=== PATIENT | male | born 2000 | race Caucasian/White ===

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

== ENCOUNTER 2021-02-09 17:32 | Emergency (ER) | payer BC, OTHER ==
[~2021-02-09] VITALS: Ht 170.1 cm; Wt 62.0 kg
--- NOTE | 2021-02-09 20:05 | ED General ---
General Stated Complaint: COUGH, SOB Source of Information: Patient Exam Limitations: No Limitations History of Present Illness Date Seen by Provider: Feb 09, 2021 Time Seen by Provider: 20:03 Initial Comments To ER with cough shortness of breath and cough for a few days. He was exposed unknowingly to a friend who was Covid positive last night. Timing/Duration: 1-2 Days Severity: Moderate Associated Systoms: Cough Allergies and Home Medications Allergies Coded Allergies: azithromycin (Unverified Allergy, Mild, 03/21/10) Penicillins (Unverified Allergy, 03/21/10) Home Medications Albuterol Sulfate 1 Puff Puff, 2 PUFF IH Q4H PRN for WHEEZING 1 PUFF = 90 MCG Prescribed by: CRISTELA MANSFIELD on 10/02/171938 Albuterol Sulfate 2.5 Mg/3 Ml Vial.neb, 2.5 MG INH Q4H PRN for WHEEZING . Prescribed by: VINAY RIVERS on 01/12/192222 Ciprofloxacin HCl 5 Ml Drops, 3 DROPS EACH EAR BID Prescribed by: KAROLINE WASHINGTON on 01/07/16944 Dexamethasone 1 Mg/1 Ml Emma, 1.5 TSP PO DAILY Mix 4MG/2.5CC water Prescribed by: KAROLINE WASHINGTON on 01/07/16944 Hydrocodone/Acetaminophen 15 Ml Solution, 1 TSP PO Q4H PRN for PAIN Prescribed by: KAROLINE WASHINGTON on 01/07/16944 Ondansetron 4 Mg Tab.rapdis, 4 MG PO Q6H PRN for NAUSEA/VOMITING Prescribed by: ROX ANDREWS on 05/10/19 102 Prednisone 10 Mg Tab, 4 TAB PO DAILY Prescribed by: VINAY RIVERS on 01/12/192129 Prednisone 20 Mg Tab, 20 MG PO DAILY . Prescribed by: VINAY RIVERS on 01/12/192222 Tetracaine Sucker Ea, 1 EA MT UD PRN for PAIN Tetracain Suckers These suckers are custom made and require a prescription. Moisten the sucker first and then suck on it gently as far back in the mouth as possible for 2-3 days. You can repeadt it in about an hour. This will take the edge off but not completely numb the throat. Prescribed by: KAROLINE WASHINGTON on 01/07/1645 [Keflex 250 MG/5 ML] , 1 TSP PO BID Prescribed by: KAROLINE WASHINGTON on 01/07/16 8747 Patient Home Medication List Home Medication List Reviewed: Yes Review of Systems Review of Systems Constitutional: see HPI EENTM: see HPI Respiratory: see HPI, cough Cardiovascular: no symptoms reported Genitourinary: no symptoms reported Musculoskeletal: no symptoms reported Skin: no symptoms reported Psychiatric/Neurological: No Symptoms Reported Hematologic/Lymphatic: No Symptoms Reported Immunological/Allergic: no symptoms reported Past Fellcvl-Aswbdt-Bzqwss Hx Immunizations Up To Date Tetanus Booster (TDap): Unknown PED Vaccines UTD: Yes Seasonal Allergies Seasonal Allergies: Yes Past Medical History Surgeries: Yes (TUBES IN EARS) Adenoidectomy, Ear Surgery, Tonsillectomy Respiratory: No Cardiac: No Neurological: No Genitourinary: No Gastrointestinal: No Musculoskeletal: No Endocrine: No HEENT: Yes Chronic Ear Infection, Tonsilitis Cancer: No Psychosocial: No Integumentary: No Blood Disorders: No Family Medical History No Pertinent Family Hx Physical Exam Vital Signs Vital Signs - First Documented 02/09/21 19:32 O2 Delivery Room Air Capillary Refill : Height, Weight, BMI Height: 5'7.00" Weight: 115lbs. 2.0oz. 52.709968xw; 19.00 BMI Method:Estimated General Appearance: No Apparent Distress, WD/WN, Thin, Other (Heart rate 54 oxygen 100% room air) Eyes: Bilateral Eye Normal Inspection, Bilateral Eye PERRL, Bilateral Eye EOMI Neck: Full Range of Motion, Normal Inspection Respiratory: No Accessory Muscle Use, No Respiratory Distress Cardiovascular: Regular Rate, Rhythm, Normal Peripheral Pulses Gastrointestinal: Normal Bowel Sounds, Non Tender, Soft Extremity: Normal Capillary Refill, Normal Inspection Neurologic/Psychiatric: Alert, Oriented x3 Skin: Normal Color, Warm/Dry Progress/Results/Core Measures Suspected Sepsis SIRS Temperature: Pulse: Respiratory Rate: Blood Pressure / Mean: Results/Orders Lab Results Laboratory Tests Test 02/09/21 19:37 Range/Units SARS-CoV-2 RNA (RT-PCR) Not Detected Not Detecte My Orders Orders - VINAY RIVERS APRN Covid 19 Inhouse Test (02/09/21 19:17) Vital Signs/I&O 02/09/21 19:32 O2 Delivery Room Air Capillary Refill : Departure Impression Primary Impression: Upper respiratory infection Disposition: 01 HOME, SELF-CARE Condition: Stable Departure-Patient Inst. Decision time for Depature: 20:33 Referrals: NAHEED DIAZ MD (PCP/Family) Primary Care Physician Patient Instructions: Viral Syndrome (DC) Add. Discharge Instructions: 1. Your Covid test tonight was negative but be mindful that it is a bit early to test given that your exposure was just last night. If you develop any changing symptoms or worsening symptoms in the next 3 to 4 days you should be reswabbed. VINYA RIVERS FRETTED INSTRUMENT REPAIRER Feb 09, 2021 20:05
[2021-02-09 20:41] VITALS: BP 94/66
== END 2021-02-09 20:34 | disposition home or self-care (01) ==
LOC: EDUNIT# 17:32 → ER 17:34
DX: J06.9 Acute upper respiratory infection, unspecified (principal); Z20.822 Contact with and (suspected) exposure to COVID-19; Z79.52 Long term (current) use of systemic steroids
CPT/HCPCS: 87636; 99282

== ENCOUNTER 2021-02-17 18:13 | Emergency (ER) | payer OTHER ==
[~2021-02-17] VITALS: Ht 187 cm; Wt 62.5 kg
[2021-02-17 18:20] VITALS: BP 119/70
[2021-02-17] MEDS ORDERED: PRD20T PO (18:40)
--- NOTE | 2021-02-17 18:40 | ED Chest Pain ---
General Chief Complaint: Chest Wall Stated Complaint: SIDE PAIN Nursing Triage Note: PT CO OF L SIDED CHEST WALL PAIN UNDER ARM AREA X 2 MONTHS, CO OF 3/10 DISCOMFORT AND SL SWELLING. WAS SEEN YESTERDAY BY PROVIDER AT [facility]. Source: patient Exam Limitations: no limitations History of Present Illness Date Seen by Provider: Feb 17, 2021 Time Seen by Provider: 18:36 Initial Comments To ER accompanied by mother with tenderness underneath the left axilla worsened by arm abduction and raising the arm up over the head. No shortness of breath. He states that he lifts heavy boxes at work. No tingling down the arm. He saw primary care yesterday and was given a prescription for Flexeril. He has been taking ibuprofen about 1 to 2 tablets 1-2 times a day for 2 months to alleviate this pain no known injury. Timing/Duration: changing over time Severity/Quality: moderate Location: central Prior CP/Workup: no prior chest pain Associated Symptoms: denies symptoms Allergies and Home Medications Allergies Coded Allergies: azithromycin (Unverified Allergy, Mild, 03/21/10) Penicillins (Unverified Allergy, 03/21/10) Home Medications Albuterol Sulfate 1 Puff Puff, 2 PUFF IH Q4H PRN for WHEEZING 1 PUFF = 90 MCG Prescribed by: CRISTELA MANSFIELD on 10/02/171938 Albuterol Sulfate 2.5 Mg/3 Ml Vial.neb, 2.5 MG INH Q4H PRN for WHEEZING . Prescribed by: VINAY RIVERS on 01/12/192222 Ciprofloxacin HCl 5 Ml Drops, 3 DROPS EACH EAR BID Prescribed by: KAROLINE WASHINGTON on 01/07/16944 Dexamethasone 1 Mg/1 Ml Emma, 1.5 TSP PO DAILY Mix 4MG/2.5CC water Prescribed by: KAROLINE WASHINGTON on 01/07/16944 Hydrocodone/Acetaminophen 15 Ml Solution, 1 TSP PO Q4H PRN for PAIN Prescribed by: KAROLINE WASHINGTON on 01/07/16944 Ondansetron 4 Mg Tab.rapdis, 4 MG PO Q6H PRN for NAUSEA/VOMITING Prescribed by: ROX ANDREWS on 05/10/19 1020 Prednisone 10 Mg Tab, 4 TAB PO DAILY Prescribed by: VINAY RIVERS on 01/12/192129 Prednisone 20 Mg Tab, 20 MG PO DAILY . Prescribed by: VINAY RIVERS on 01/12/192222 Tetracaine Sucker Ea, 1 EA MT UD PRN for PAIN Tetracain Suckers These suckers are custom made and require a prescription. Moisten the sucker first and then suck on it gently as far back in the mouth as possible for 2-3 days. You can repeadt it in about an hour. This will take the edge off but not completely numb the throat. Prescribed by: KAROLINE WASHINGTON on 01/07/16944 [Keflex 250 MG/5 ML] , 1 TSP PO BID Prescribed by: KAROLINE WASHINGTON on 01/07/16944 Patient Home Medication List Home Medication List Reviewed: Yes Review of Systems Review of Systems Constitutional: see HPI EENTM: No Symptoms Reported Respiratory: No Symptoms Reported Cardiovascular: No Symptoms Reported Gastrointestinal: See HPI Genitourinary: No Symptoms Reported Musculoskeletal: no symptoms reported Skin: no symptoms reported Psychiatric/Neurological: No Symptoms Reported Endocrine: No Symptoms Reported Hematologic/Lymphatic: No Symptoms Reported Past Hpuboiv-Ajddtz-Rtgtjr Hx Patient Social History Tobacco Use?: No Substance use?: No Alcohol Use?: No Pt feels they are or have been: No Immunizations Up To Date Tetanus Booster (TDap): Unknown PED Vaccines UTD: Yes Seasonal Allergies Seasonal Allergies: Yes Past Medical History Surgeries: Yes (TUBES IN EARS) Adenoidectomy, Ear Surgery, Tonsillectomy Respiratory: No Cardiac: No Neurological: No Genitourinary: No Gastrointestinal: No Musculoskeletal: No Endocrine: No HEENT: Yes Chronic Ear Infection, Tonsilitis Cancer: No Psychosocial: No Integumentary: No Blood Disorders: No Family Medical History No Pertinent Family Hx Physical Exam Vital Signs Vital Signs - First Documented 02/17/21 18:20 Temp 36.8 Pulse 74 Resp 18 B/P (MAP) 119/70 (86) Pulse Ox 99 Capillary Refill : Less Than 3 Seconds Height, Weight, BMI Height: 5'7.00" Weight: 115lbs. 2.0oz. 52.000475uq; 17.00 BMI Method:Estimated General Appearance: No Apparent Distress, WD/WN Respiratory: No Accessory Muscle Use, No Respiratory Distress Cardiovascular: Regular Rate, Rhythm, Normal Peripheral Pulses Gastrointestinal: Non Tender, Soft Extremity: Normal Capillary Refill, Normal Inspection Neurologic/Psychiatric: Alert, Oriented x3 Skin: Normal Color, Warm/Dry Other comments The left latissimus dorsi muscle beneath the left axilla is tender to palpation but the overlying skin is normal without edema ecchymosis or erythema. There is no palpable swelling or nodule. Progress/Results/Core Measures Results/Orders Vital Signs/I&O 02/17/21 18:20 Temp 36.8 Pulse 74 Resp 18 B/P (MAP) 119/70 (86) Pulse Ox 99 Blood Pressure Mean: 86 Departure Impression Primary Impression: Strain of latissimus dorsi muscle Disposition: HOME, SELF-CARE Condition: Stable Departure-Patient Inst. Decision time for Depature: 18:38 Referrals: NAHEED DIAZ MD (PCP/Family) Primary Care Physician Patient Instructions: Muscle Strain Add. Discharge Instructions: 1. Return to ER for any concerns 2. Follow-up with primary care next week to reevaluate symptoms and ensure improvement. If there is no improvement then a nonemergent imaging studies such as MRI may be needed All discharge instructions reviewed with patient and/or family. Voiced understanding. Scripts Prednisone (Prednisone) 20 Mg Tab 40 MG PO DAILY, #6 TAB 0 Refills Prov: VINAY RIVERS APRN 02/17/21 Images Torso/Trunk 1 - Tenderness VINAY RIVERS APRN Feb 17, 2021 18:40
== END 2021-02-17 18:53 | disposition home or self-care (01) ==
LOC: EDUNIT# 18:13 → ER 18:17
DX: S29.012A Strain of muscle and tendon of back wall of thorax, initial encounter (principal); Z79.52 Long term (current) use of systemic steroids; X50.0XXA Overexertion from strenuous movement or load, initial encounter
CPT/HCPCS: 99284

== ENCOUNTER 2021-08-14 20:17 | Emergency (ER) | payer OTHER ==
[~2021-08-14] VITALS: Ht 188 cm; Wt 66.2 kg
[2021-08-14 20:55] VITALS: BP 135/91
--- NOTE | 2021-08-14 21:09 | ED Back Pain ---
General Chief Complaint: Back Problems Stated Complaint: PAIN IN LEFT SIDE Source of Information: Patient Exam Limitations: No Limitations History of Present Illness Date Seen by Provider: Aug 14, 2021 Time Seen by Provider: 21:06 Initial Comments To ER with ongoing pain around the left scapula. I saw him a few months ago for the same. Referred him to primary care. He states he has not yet had a chance to find a primary care doctor. He works at [employer] and lifts boxes all day and it was believed to be related to a strain at that time. He occasionally has some tingling down the left arm. He denies any injury. No fevers no chills. During his last visit for the same we gave a prescription for anti-inflammat ories and muscle relaxers and he reports these did help quite a bit. Location: Other (left periscapular) Timing/Duration: Other (9 months) Severity: Moderate Pain/Injury Location: Other Method of Injury: Unknown Associated Symptoms: denies symptoms Allergies and Home Medications Allergies Coded Allergies: azithromycin (Unverified Allergy, Mild, 03/21/10) Penicillins (Unverified Allergy, Unknown, 02/17/21) Patient Home Medication List Home Medication List Reviewed: Yes Albuterol Sulfate (Proair Hfa) 1 Puff Puff, 2 PUFF IH Q4H PRN for WHEEZING Prescribed by: CRISTELA MANSFIELD on 10/02/171938 Albuterol Sulfate (Albuterol Sulfate) 2.5 Mg/3 Ml Vial.neb, 2.5 MG INH Q4H PRN for WHEEZING Prescribed by: VINAY RIVERS on 01/12/192222 Ciprofloxacin HCl (Ciloxan) 5 Ml Drops, 3 DROPS EACH EAR BID Prescribed by: KAROLINE WASHINGTON on 01/07/16944 Dexamethasone (Decadron Intensol Oral Solution (Repackaging)) 1 Mg/1 Ml Emma, 1.5 TSP PO DAILY Prescribed by: KAROLINE WASHINGTON on 01/07/16944 Hydrocodone/Acetaminophen (Hydrocodon-Acetamin 7.5-325/15 ML) 15 Ml Solution, 1 TSP PO Q4H PRN for PAIN Prescribed by: KAROLINE WASHINGTON on 01/07/16944 Methocarbamol (Methocarbamol) 750 Mg Tablet, 750 MG PO Q6-8HR PRN for pain Prescribed by: VINAY RIVERS on 08/14/212112 Naproxen (Naprosyn) 500 Mg Tablet, 500 MG PO BID PRN for PAIN-MODERATE (5-7) Prescribed by: VINAY RIVERS on 08/14/212112 Ondansetron (Ondansetron Odt) 4 Mg Tab.rapdis, 4 MG PO Q6H PRN for NAUSEA/VOMITING Prescribed by: ROX ANDREWS on 05/10/19 102 Prednisone (Prednisone) 10 Mg Tab, 4 TAB PO DAILY Prescribed by: VINAY RIVERS on 01/12/192129 Prednisone (Prednisone) 20 Mg Tab, 20 MG PO DAILY Prescribed by: VINAY RIVERS on 01/12/192222 Prednisone (Prednisone) 20 Mg Tab, 40 MG PO DAILY Prescribed by: VINAY RIVERS on 02/17/211839 Tetracaine (Tetracaine Suckers) Sucker Ea, 1 EA MT UD PRN for PAIN Prescribed by: KAROLINE WASHINGTON on 01/07/16944 [Keflex 250 MG/5 ML] , 1 TSP PO BID Prescribed by: KAROLINE WASHINGTON on 01/07/16944 Review of Systems Constitutional: see HPI; No chills, No fever EENTM: see HPI Respiratory: see HPI; No cough, No short of breath Cardiovascular: no symptoms reported Genitourinary: no symptoms reported Musculoskeletal: see HPI Skin: no symptoms reported Psychiatric/Neurological: No Symptoms Reported Past Tblptns-Oxkhrk-Lombyx Hx Immunizations Up To Date Tetanus Booster (TDap): Unknown PED Vaccines UTD: Yes Seasonal Allergies Seasonal Allergies: Yes Past Medical History Surgeries: Yes (TUBES IN EARS) Adenoidectomy, Ear Surgery, Tonsillectomy Respiratory: No Cardiac: No Neurological: No Genitourinary: No Gastrointestinal: No Musculoskeletal: No Endocrine: No HEENT: Yes Chronic Ear Infection, Tonsilitis Cancer: No Psychosocial: No Integumentary: No Blood Disorders: No Family Medical History No Pertinent Family Hx Physical Exam Vital Signs Capillary Refill : Height, Weight, BMI Height: 5'7.00" Weight: 115lbs. 2.0oz. 52.509557dg; 17.00 BMI Method:Estimated General Appearance: No Apparent Distress, WD/WN, Other (He arrives in his own sling as this gives him some comfort) Respiratory: No Accessory Muscle Use, No Respiratory Distress Gastrointestinal: Normal Bowel Sounds, Non Tender, Soft Extremity: Normal Capillary Refill, Normal Inspection, Other (Has some tenderness around the left inferior and lateral scapula. Overlying skin is normal. There is no swelling. It is tender to palpation and with range of motion of the left arm.) Neurologic/Psychiatric: Alert, Oriented x3 Skin: Normal Color, Warm/Dry Progress/Results/Core Measures Results/Orders My Orders Orders - VINAY RIVERS APRN Chest 1 View, Ap/Pa Only (08/14/21 21:05) Shoulder, Left, 3 Views (08/14/21 21:05) Departure Impression Primary Impression: Chronic periscapular pain on left side Disposition: HOME, SELF-CARE Condition: Stable Departure-Patient Inst. Decision time for Depature: 21:09 Referrals: NAHEED DIAZ MD (PCP/Family) Primary Care Physician JOSE ALFARO MD, HOLLY R MD HUDSON, CASEY V DO STEWART,SD Flaherty MD Patient Instructions: NO INSTRUCTIONS GIVEN Add. Discharge Instructions: 1. Take the medication as directed. Call one of the physicians listed tomorrow morning to make an appointment to be seen even if you are feeling better. Scripts Methocarbamol (Methocarbamol) 750 Mg Tablet 750 MG PO Q6-8HR PRN for pain, #30 TAB Prov: VINAY RIVERS APRN 08/14/21 Naproxen (Naprosyn) 500 Mg Tablet 500 MG PO BID PRN for PAIN-MODERATE (5-7), #30 TAB 0 Refills Prov: VINAY RIVERS APRN 08/14/21 Work/School Note: Work Release Form Date Seen in the Emergency Department: Aug 14, 2021 Return to Work: Aug 16, 2021 Images Torso/Trunk 1 - Tenderness VINAY RIVERS APRN Aug 14, 2021 21:09
[2021-08-14] MEDS ORDERED: NAPR-1071 PO (21:13)
[2021-08-14] MEDS ORDERED: METH-732 PO (21:13)
--- NOTE | 2021-08-14 21:27 | Diagnostic Imaging Report ---
INDICATION: Left scapular pain. FINDINGS: There is normal alignment of the glenohumeral joint and of the acromioclavicular joint. There are no findings of a proximal humeral fracture. There is no fracture of the clavicle. There are no findings to suggest a fracture of the scapula. Left lung clear without pneumothorax. IMPRESSION: Negative radiographs of the left shoulder. Dictated by: Dictated on workstation # [id number]
--- NOTE | 2021-08-14 21:29 | Diagnostic Imaging Report ---
INDICATION: Left scapular pain. COMPARISON: Shoulder radiographs from the same day. FINDINGS: The lungs appear clear without focal infiltrate or consolidation. There are no findings of an effusion. There is no evidence of a pneumothorax. Heart size and mediastinal contours appear appropriate. Pulmonary vascularity appears within normal limits. There is no acute or suspicious osseous abnormality demonstrated. IMPRESSION: No radiographic evidence of an acute cardiopulmonary process. Dictated by: Dictated on workstation # [id number]
== END 2021-08-14 21:46 | disposition home or self-care (01) ==
LOC: EDUNIT# 20:17 → ER 20:21
DX: G89.29 Other chronic pain (principal); M25.512 Pain in left shoulder
CPT/HCPCS: 71045; 73030